=== PATIENT | female | born 1965 | race Caucasian/White ===

== ENCOUNTER 2017-01-10 11:00 | Day surgery (SDC) | payer BC ==
[2017-01-09 10:53] VITALS: BMI 30.9
[~2017-01-10 11:00] MED LIST: LIDOCAINE HCL 1%, 10 MG/ML (20ML VIAL) IJ ONE; ceFAZolin SODIUM 1 GM VIAL IVPB ONE
[2017-01-10] MEDS ORDERED: PROPOFOL 20 ML ONE ×3 (13:02)
[2017-01-10] MEDS ORDERED: MIDAZOLAM HCL 2 MG/2 ML SINGLE DOSE VIAL ONE ×2 (13:02→13:03)
[2017-01-10] MEDS ORDERED: ceFAZolin SODIUM 1 GM VIAL IVPB ONE (13:15)
[2017-01-10] MEDS ORDERED: DEXAMETHASONE SOD PHOSPHATE 4 MG/1 ML VIAL ONE (13:29)
[2017-01-10] MEDS ORDERED: KETOROLAC TROMETHAMINE 30 MG/1 ML VIAL ONE (13:29)
[2017-01-10] MEDS ORDERED: LIDOCAINE HCL 1%, 10 MG/ML (20ML VIAL) IJ ONE (13:30)
[2017-01-10] MEDS ORDERED: PROTAMINE SULFATE 50 MG/5 ML VIAL ONE (14:10)
[2017-01-10] MEDS ORDERED: oxyCODONE HCL 5 MG TABLET PO PRN (14:30)
[2017-01-10] MEDS ORDERED: PROMETHAZINE HCL 25 MG/1 ML VIAL IVPUSH PRN (14:30)
[2017-01-10] MEDS ORDERED: ONDANSETRON 4 MG/2 ML VIAL IVPUSH PRN (14:30)
[2017-01-10] MEDS ORDERED: CLOPIDOGREL BISULFATE 75 MG TABLET (FP) PO ONE (14:45)
--- NOTE | 2017-01-10 14:45 | OP ---
Operative Note - Note: Operative Date: 01/10/17 Pre-Operative Diagnosis: Right lower extremity claudication Operation: Aortogram, RLE angiogram, SFA DCB angioplasty with sfa stent placement. Post-Operative Diagnosis: Same as Pre-op Surgeon: Marko Thompson Anesthesia: Fractional Estimated Blood Loss (mls): 50 Operative Report Dictated: Yes
--- NOTE | 2017-01-10 14:50 | HP ---
Admitting History and Physical - Admission Chief Complaint: RLE claudication - Past Medical History DIRECTOR CORPORATE: Yes: Other (Stroke (2015)) Cardiovascular: Yes: HTN, Hyperlipdemia, Other (undiagnosed "valve leak") ...LMP Comment: 05/2016 - Smoking History Smoking history: Current every day smoker Have you smoked in the past 12 months: Yes Aproximately how many cigarettes per day: 10 - Alcohol/Substance Use Hx Alcohol Use: Yes Home Medications - Allergies Allergies/Adverse Reactions: Allergies Allergy/AdvReac Type Severity Reaction Status Date / Time No Known Allergies Allergy Verified 01/09/17 10:42 - Home Medications Home Medications: Ambulatory Orders Celecoxib [Celebrex] 200 mg PO HS 01/24/15 Valsartan 320 mg PO DAILY 11/19/16 Acetaminophen [Tylenol -] 500 mg PO Q6H PRN MDD 4 01/10/17 Aspirin Coated [Ecotrin -] 81 mg PO HS 01/10/17 Clopidogrel Bisulfate [Plavix -] 75 mg PO DAILY #30 tablet 01/10/17 Physical Examination Vital Signs: Vital Signs Temperature 97.8 F 01/10/17 11:33 Pulse Rate 84 01/10/17 11:33 Respiratory Rate 18 01/10/17 11:33 Blood Pressure 179/88 01/10/17 11:33 O2 Sat by Pulse Oximetry (%) 98 01/10/17 11:43 Constitutional: Yes: Well Nourished Eyes: Yes: WNL HENT: Yes: WNL Neck: Yes: WNL Cardiovascular: Yes: WNL Respiratory: Yes: WNL Gastrointestinal: Yes: WNL Edema: No Peripheral Pulses WNL: No Assessment/Plan RLE claudication 1. For angiogram today
[2017-01-10] MEDS ORDERED: CLOPIDOGREL BISULFATE 75 MG TABLET (FP) ONE (15:21)
[2017-01-10 16:36] VITALS: TEMP 98.2
--- NOTE | 2017-01-10 17:46 | OP ---
DATE OF OPERATION: 01/10/2017 PREOPERATIVE DIAGNOSIS: Right lower extremity claudication. POSTOPERATIVE DIAGNOSIS: Right lower extremity claudication. PROCEDURE: Aortogram, right lower extremity angiogram, superficial femoral artery drug-coated balloon angioplasty with superficial femoral artery stent placement. SURGEON: Marko Elmore DO ANESTHESIA: Fractional. BLOOD LOSS: 20 mL. The patient is a 51-year-old female who is a long-time smoker and has right lower extremity claudication. Preoperative ultrasound performed in the office shows that she has an SFA occlusion at Donald's canal in the right lower extremity. It was decided that she would need angiogram. Patient came in to ambulatory surgery. Patient was consented for the procedure, understanding all risks, benefits, alternatives. She was then taken to the operating room. Once in the operating room, she was laid down on the operating table in a supine manner. The area of the right and left groin were prepped and draped in sterile surgical manner. We then went ahead and under ultrasound guidance visualized the left common femoral artery and 10 mL of lidocaine 1% was injected. We then took our micropuncture needle and punctured the left common femoral artery and a micropuncture inserted and a micropuncture sheath was inserted. A 0.035 floppy guidewire was inserted into the aorta, followed by a Merit catheter. We then shot an aortogram via hand injection, showing that the aorta and the iliac arteries were without any disease; however, the aortic bifurcation was narrow. We then placed a 0.035 floppy guidewire up and over it to the right common femoral artery and our Merit catheter followed. We then shot an angiogram of the right lower extremity via hand injection, showing that the profunda and the common femoral artery were patent. Proximal and mid SFAs were patent but the distal SFA was occluded for about 8 cm. The popliteal artery was patent and patient has essentially 2-vessel runoff into the foot but mainly the posterior tibial. At this point we placed a 0.035 floppy guidewire to the SFA, took out our Merit catheter, placed a 6 x 45 crossover sheath and 5000 units of heparin was administered to patient. We then got our wire down to the occlusion and followed by a Quick-Cross catheter, we were able to selectively cross the occlusion and placed the Quick-Cross in the popliteal artery. We then shot an angiogram, showing that we were intraluminal. We then went ahead and used a 5 x 8 Ultraverse balloon and performed angioplasty of the distal SFA. We then used a 5 x 8 Lutonix balloon and performed angioplasty and kept the balloon up for 2 minutes. Completion angiogram showed that the SFA was patent but had some dissection. We then used a 6 x 10 LifeStent and the LifeStent was deployed in the distal SFA and was ballooned in place using a 5 x 8 balloon. Completion angiogram now showed that the SFA was patent. There was good runoff into the foot, mainly the posterior tibial. The patient had a good palpable PT pulse at this point we brought our sheath up and over and StarClose device was successfully deployed in the left common femoral artery. The area was wet and dried and Dermabond was placed. The patient tolerated procedure, no complication. Patient transferred back in stable condition. MARKO ELMORE DO [id number]
[2017-01-10 18:24] VITALS: BP 159/81; PULSE 84
== END 2017-01-10 18:05 | disposition home or self-care (01) ==
LOC: JASU-SURG 11:00
PROVIDERS: ATTEND Surgery Vascular Surgery
PROC: 047K3D1 Dilation of Right Femoral Artery with Intraluminal Device, using Drug-Coated Balloon, Percutaneous Approach (ICD-10-PCS; principal; 2017-01-10 12:30)
DX: I70.211 Atherosclerosis of native arteries of extremities with intermittent claudication, right leg (principal); Z72.0 Tobacco use
CPT/HCPCS: 37226; C1877; C2623; 76000-TC; 94760